=== PATIENT | female | born 1955 | race Caucasian/White ===

== ENCOUNTER 2020-05-24 10:12 | Emergency (ER) | payer MEDICARE, SELFPAY ==
[2020-05-24 10:24] VITALS: BP 169/95; PULSE 93; RESP 16; TEMP 36.5; O2SAT 97; BMI 33.3
[2020-05-24 10:31] VITALS: PULSE 99; O2SAT 97
--- NOTE | 2020-05-24 10:40 | XR_ITS ---
WS: [id number] Right arm and humerus, 2 views, 05/24/2020 Clinical Data: fall pain Comparison: None. Findings: There is a comminuted impacted fracture of the neck of the right humerus and the right humeral head. The shaft of the humerus is normal. The soft tissues are unremarkable. XR/[place] [id number] Impression: Comminuted impacted fracture of the neck of the right humerus and right humeral head.
--- NOTE | 2020-05-24 10:40 | XR_ITS ---
WS: [id number] Right shoulder, 3 views, 05/24/2020 Clinical Data: fall pain Comparison: None. Findings: There is a comminuted fracture of the junction of the humeral head and humeral neck. The humeral head remains adjacent to the glenoid fossa. The AC joint is normal. The adjacent right clavicle, right scapula and right ribs are unremarkable. XR/XR shoulder RT min 2V* [id number] Impression: Comminuted impacted fracture of the neck and head of the right humerus.
--- NOTE | 2020-05-24 11:12 | W.ED.EXTPRO ---
HPI - Extremity Problem General: Chief complaint: Extremity Injury, Upper Stated complaint: R SHOULDER INJURY/PAIN Time Seen by Provider: 05/24/20 10:23 History of Present Illness: HPI Narrative: 65-year-old female who presents with complaint of right shoulder pain after a fall on an outstretched arm yesterday. Is unable to move or use her right arm since the injury. Not strike her head did not lose consciousness. Patient primarily speaks Luxembourger she has a family member in attendance with he was able to translate. MD Complaint: extremity pain and extremity swelling Onset (ago): day(s) Pain Consistency: constant Location: right Quality: sharp Radiation: distal Relieving factors: immobilization Exacerbating factors: range of motion and palpation Associated symptoms: Deny arthralgias, chest pain, fever(s), myalgias, rash or short of breath Review of Systems Const: Denies: fever(s) ENMT: Denies: throat pain, ear or mastoid pain, nasal discharge or nasal congestion Card: Denies: chest pain Resp: Denies: dyspnea, productive cough or non-productive cough GI: Denies: abdominal pain, nausea, vomiting, hematemesis, coffee ground emesis, diarrhea, constipation, bloating, hematochezia or melena : Denies: flank pain, difficulty voiding, dysuria, urinary frequency or urinary urgency Skin/Breast: Denies: rash Physical Exam Const: COMMON NORMALS: no acute distress GENERAL APPEARANCE: cooperative and comfortable ORIENTATION/CONSCIOUSNESS: Yes awake, Yes oriented to person, Yes oriented to place and Yes oriented to time HENMT: COMMON NORMALS: normocephalic, atraumatic and hearing grossly normal bilaterally HEAD & SCALP: normocephalic and atraumatic Neck/C-Spine: COMMON NORMALS: full ROM, no lymphadenopathy, supple and no JVD Resp: COMMON NORMALS: normal respiratory effort, No retractions, No use of accessory muscles and clear to auscultation bilaterally AUSCULTATION: clear to auscultation bilaterally Cardio: COMMON NORMALS: no JVD, regular rate, regular rhythm and No murmurs present (Cardio) RATE: regular rate RHYTHM: regular rhythm GI: COMMON NORMALS: Soft to palpation and No hepatosplenomegaly present AUSCULTATION: Yes normoactive bowel sounds PALPATION: Yes Soft to palpation, No Tenderness to palpation present (GI), No Guarding due to palpation present (GI) and Yes No hepatosplenomegaly present Extremity: NARRATIVE EXTREMITY EXAM: Obvious deformity of the proximal humerus with significant swelling and pain with palpation consistent with proximal humerus fracture Neuro: SENSORIUM/ORIENTATION: Yes oriented to person, Yes oriented to place and Yes oriented to time Skin: COMMON NORMALS: no rashes or lesions noted GENERAL SKIN EXAM: no rashes or lesions noted Course Vital Signs: Vital signs: Vital Signs Temperature 97.7 F 05/24/20 10:24 Pulse Rate 85 05/24/20 11:23 Respiratory Rate 18 05/24/20 11:23 Blood Pressure 133/84 05/24/20 11:23 Pulse Oximetry 93 05/24/20 11:23 MDM - Extremity (Nontraumatic) MDM Narrative: Medical decision making narrative: Reviewed the findings with the patient and her family member who is translating for us we will put her in an arm sling short-term follow-up with orthopedics for definitive care. Discharge Plan Discharge Patient Disposition: Home Clinical Impression: Fracture of humerus Condition: Stable Prescriptions: New hydrocodone-acetaminophen 5-325 mg tablet 1 tab PO Q6H PRN (Reason: pain) Qty: 20 RF: 0 Discharge Orders: Discharge ED (Routine); Ordered 05/24/20 Ordered By: Vern Tee Referrals: Sarah Younger MD [Primary Care Provider] - Discharge Diet: Usual diet Discharge Activity: Increase activity as tolerated Patient Instructions: Opioid Safety Activity Restrictions/Additional Instructions: Case management will call with a referral to orthopedics. Continue to use a sling until released by orthopedics. Coding Level of Care Code ED Director Of Global Sales for Mazin Baldwin
[2020-05-24 11:23] VITALS: BP 133/84; PULSE 85; RESP 18; O2SAT 93
--- NOTE | 2020-05-24 12:45 | DCPLANNER ---
radio station manager had message to schedule a follow up appointment for patient with ortho. radio station manager called the ortho clinic, spoke with Gabby, gave clinic patients information. radio station manager was told that patients information would be printed and reviewed. Clinic will call patient with appointment information.
--- NOTE | 2020-05-31 14:16 | DCPLANNER ---
computer project manager called the ortho clinic to confirm if a follow up appointment had been scheduled for patient. computer project manager spoke with Gabby, was told that clinic is unable to speak with patient at this time. computer project manager unable to speak with patient.
== END 2020-05-24 11:23 | disposition home or self-care (01) ==
PROVIDERS: Emergency Provider Family Medicine; PCP Family Medicine
DX: S42.214A Unspecified nondisplaced fracture of surgical neck of right humerus, initial encounter for closed fracture (principal); W19.XXXA Unspecified fall, initial encounter
CPT/HCPCS: 73030; 73060; 99282

== ENCOUNTER 2020-06-16 13:03 | Outpatient (CLI) | payer MEDICARE, SELFPAY ==
--- NOTE | 2020-06-16 13:20 | XR_ITS ---
WS: [id number] Right shoulder, 3 views, 06/16/2020 Clinical Data: PAIN IN R SHOULDER Comparison: Right shoulder, 05/24/2020 Findings: The comminuted impacted fracture of the junction of the right humeral neck and head remains in good p osition. The AC joints unremarkable. XR/XR shoulder RT min 2V* [id number] Impression: No change in fracture of the junction of the right humeral neck and head.
== END 2020-06-16 13:04 | disposition home or self-care (01) ==
PROVIDERS: PCP Family Medicine; Visit Provider Nurse Practitioner Family
DX: S42.211A Unspecified displaced fracture of surgical neck of right humerus, initial encounter for closed fracture (principal); X58.XXXA Exposure to other specified factors, initial encounter
CPT/HCPCS: 73030

== ENCOUNTER → 2022-11-11 09:22 | Outpatient (BNVA) | payer MEDICARE, SELFPAY | PROVIDERS: PCP Family Medicine; Visit Provider Podiatrist Foot & Ankle Surgery | DX: Q82.8 Other specified congenital malformations of skin; L60.8 Other nail disorders | CPT/HCPCS: 17110; 73630; 99203 ==

== ENCOUNTER 2023-05-20 08:10 | Emergency (ER) | payer MEDICARE, MEDICAID, SELFPAY ==
[2023-05-20 08:32] VITALS: BP 189/91; PULSE 81; RESP 18; TEMP 36.8; O2SAT 95; BMI 33.3
--- NOTE | 2023-05-20 08:34 | XRR_ITS ---
PROCEDURE INFORMATION: Exam: XR Chest Exam date and time: 05/20/2023 8:42 AM Age: 68 years old Clinical indication: Pain; Cough and dyspnea; Angina pectoris; Additional info: Dyspnea/cough TECHNIQUE: Imaging protocol: Radiologic exam of the chest. Views: 1 view. COMPARISON: CR XR shoulder RT min 2V* [id number] 06/16/2020 1:28 PM FINDINGS: Lungs: The lung parenchyma is clear. Pleural spaces: No pneumothorax. No large pleural effusion. Heart/Mediastinum: Enlarged cardiac silhouette. Bones/joints: Degenerative changes in the shoulders. XR/XR chest 1V portable [id number] IMPRESSION: Enlarged cardiac silhouette.
--- NOTE | 2023-05-20 08:35 | ECG_ITS ---
[facility] Test Date: 2023-05-20 Pat Name: Stephania Lozano Department: Room: Gender: Female Pin Sticker: : [id number] Requested By: Vern Cuevas Order Number: [id number] Kings MD: Houston Kemp M.D. Measurements Intervals [place] Rate: 90 P: 53 TN: 201 QRS: 70 QRSD: 104 T: 44 QT: 337 QTc: 412 Interpretive Statements SINUS RHYTHM No previous ECG available for comparison Electronically Signed On 05-20-2023 18:23:48 TECHNICAL SPEC by Houston Kemp M.D. [email or web address] [email or web address] [email or web address]/[id number] f
--- NOTE | 2023-05-20 08:43 | ED_ITS ---
HPI - SOB/Dyspnea 2 General: Chief Complaint: Shortness of Breath/Dyspnea Stated Complaint: chest pain, sob Time Seen by Provider: 05/20/23 08:20 Source: patient Mode of arrival: ambulatory History of Present Illness: HPI Narrative: 68-year-old female presents emergency ro om planing shortness of breath some mild chest discomfort. She has had a mass and swollen area in her neck. Previously treated with antibiotics at an outpatient clinic it seems to be getting larger and more difficult for her to breathe she describes what sounds like almost a stridor certainly at the bedside she audible adventitious sounds. She is not a smoker has not been in the past she denies any hemoptysis. She has increasing cough denies fever sweats or chills. Patient does not speak Japanese her sons are at the bedside and assist in translation. MD elicited complaint: shortness of breath Timing: constant Exacerbating factors: nothing Relieving factors: nothing Associated symptoms: Deny abdominal pain, chest congestion, chest pain, cough, diaphoresis, dizziness, extremity pain, fever(s), hemoptysis, lightheadedness, myalgias, nausea, orthopnea, palpitations, paresthesias, polydipsia, polyuria, rash, sense of impending doom, syncope or vomiting Treatment prior to arrival: none Review of Systems 2 Const: Denies: fever(s), chills or diaphoresis Card: Denies: chest pain, palpitations, lightheadedness, syncope or orthopnea Resp: Denies: dyspnea, hemoptysis or chest congestion GI: Denies: abdominal pain, nausea or vomiting : Denies: dysuria, urinary frequency or urinary urgency Musc: Denies: neck pain, back pain or extremity pain Skin/Breast: Denies: rash Neuro: Denies: dizziness Endo: Denies: polyuria or polydipsia Physical Exam 2 Const: GENERAL APPEARANCE: cooperative ORIENTATION/CONSCIOUSNESS: Yes awake HENMT: COMMON NORMALS: normocephalic, atraumatic and hearing grossly normal bilaterally HEAD & SCALP: normocephalic and atraumatic Neck/C-Spine: OTHER: Swollen distorted mass at the lower portion of the trachea it extends supraclavicularly bilaterally is firm nonfluctuant. Mild stridor with auscultation at the neck Resp: COMMON NORMALS: normal respiratory effort, No retractions and No use of accessory muscles AUSCULTATION: wheezes Cardio: COMMON NORMALS: regular rate, regular rhythm and No murmurs present (Cardio) RATE: regular rate RHYTHM: regular rhythm GI: COMMON NORMALS: Soft to palpation and No hepatosplenomegaly present A USCULTATION: Yes normoactive bowel sounds PALPATION: Yes Soft to palpation, No Tenderness to palpation present (GI), No Guarding due to palpation present (GI) and Yes No hepatosplenomegaly present Extremity: COMMON NORMALS: normal to inspection, capillary refill normal, no clubbing, cyanosis or edema, no calf tenderness and no pedal edema Skin: COMMON NORMALS: no rashes or lesions noted GENERAL SKIN EXAM: no rashes or lesions noted Course 2 Vital Signs: Vital signs: Vital Signs Temperature 98.2 F 05/20/23 08:32 Pulse Rate 82 05/20/23 14:16 Respiratory Rate 20 H 05/20/23 14:16 Blood Pressure 116/74 05/20/23 14:16 Pulse Oximetry 97 05/20/23 14:16 Oxygen Delivery Me thod Room Air 05/20/23 10:30 MDM - SOB/Dyspnea Medical Decision Making Labs and imaging reviewed. Patient has a very large mass emanating from the upper portion of the chest through the thoracic inlet involving vascular structures. Her airway is not compromised this time discussed with radiology. Given the proximity and the distortion of the trachea were not intubating the patient. I am concerned that if we do we may precipitate bleeding at this point she has no respiratory distress is managing her breathing without any difficulty. Reviewed with receiving physician at [facility] they concur. Imaging has been forwarded to their facility the ENT and vascular surgery have reviewed. Will transfer ER to ER. Medical Records I reviewed the patient's medical records. Lab Data I reviewed the patient's lab results. 05/20/23 08:55 05/20/23 08:55 Labs/Radiology: Radiology Impressions Chest X-Ray 05/20/23 08:34 IMPRESSION: Enlarged cardiac silhouette. Laboratory Results WBC 9.51 10^3/uL (3.29-11.43) 05/20/23 08:55 RBC 3.60 10^6/uL (3.85-5.65) L 05/20/23 08:55 Hgb 11.30 g/dL (11.27-16.99) 05/20/23 08:55 Hct 35.5 % (36-47) L 05/20/23 08:55 MCV 98.6 fl (85-98) H 05/20/23 08:55 MCH 31.4 pg (27-33) 05/20/23 08:55 MCHC 31.8 g/dL (30-55) 05/20/23 08:55 RDW 12.9 % (12.1-15.1) 05/20/23 08:55 Plt Count 280 10^3/cmm (157-399) 05/20/23 08:55 MPV 12.0 fL (7.4-10.4) H 05/20/23 08:55 Neut % (Auto) 76.3 % 05/20/23 08:55 Lymph % (Auto) 11.5 % 05/20/23 08:55 Gregory % (Auto) 6.1 % 05/20/23 08:55 Eos % (Auto) 5.2 % 05/20/23 08:55 Baso % (Auto) 0.6 % 05/20/23 08:55 Neut # (Auto) 7.26 10^3/uL (1.8-7.7) 05/20/23 08:55 Lymph # (Auto) 1.1 10^3/uL (0.8-4.8) 05/20/23 08:55 Gregory # (Auto) 0.6 10^3/uL (0.2-0.9) 05/20/23 08:55 Eos # (Auto) 0.5 10^3/uL (0.0-0.8) 05/20/23 08:55 Baso # (Auto) 0.1 10^3/uL (0.0-0.1) 05/20/23 08:55 Nucleated RBC % (auto) 0 % 05/20/23 08:55 Nucleated RBCs # 0.0 /100WBC 05/20/23 08:55 Sodium 138 mmol/L (136-145) 05/20/23 08:55 Potassium 3.9 mmol/L (3.5-5.1) 05/20/23 08:55 Chloride 98 mmol/L (98-107) 05/20/23 08:55 Carbon Dioxide 28 mmol/L (22-29) 05/20/23 08:55 Anion Gap 15.9 (5-19) 05/20/23 08:55 BUN 6 mg/dL (8-23) L 05/20/23 08:55 Creatinine 0.4 mg/dL (0.5-0.9) L 05/20/23 08:55 GFR Calculation 157.8 mL/min (90-130) H 05/20/23 08:55 Glucose 149 mg/dL (65-115) H 05/20/23 08:55 Calculated Osmolality 286 mOsm/kg (285-295) 05/20/23 08:55 Calcium 9.0 mg/dL (8.5-10.5) 05/20/23 08:55 Total Bilirubin 0.4 mg/dL (0.15-1.2) 05/20/23 08:55 AST 10 U/L (0-32) 05/20/23 08:55 ALT 14 U/L (0-33) 05/20/23 08:55 Alkaline Phosphatase 69 U/L (35-105) 05/20/23 08:55 Troponin T Baseline 12 ng/L (0-10) H 05/20/23 08:55 Troponin T 120 Minute 15.05 ng/L (0-10) H 05/20/23 11:11 Delta Troponin T 3.05 ABS# (0-10) 05/20/23 11:11 Total Protein 7.0 g/dL (6.6-8.7) 05/20/23 08:55 Albumin 4.1 g/dL (3.5-5.2) 05/20/23 08:55 Globulin 2.9 g/dL (1.3-4.6) 05/20/23 08:55 All radiology interpretation(s) finalized by discharge Discharge Plan Discharge Patient Disposition: Xfer Short-Term Hosp Clinical Impression: Mass in neck Condition: Stable Referrals: Sarah Younger MD [Primary Care Provider] - Coding Level of Care Code ED Bridge Crane Operator for Mazin Baldwin
[2023-05-20] MEDS: aspirin 81 mg Chew Tablet 324 MG PO (08:47)
--- NOTE | 2023-05-20 08:49 | CT_ITS ---
WS: [id number] CT NECK TECHNIQUE: Contrast-enhanced CT of the neck with coronal and sagittal reformatted images. CLINICAL INFORMATION: neck mass COMPARISON: None. DLP: 244.[address] scans at [facility] use at least one of these dose optimization techniques: automated e xposure control; mA and/or kV adjustment per patient size (includes targeted exams where dose is matc hed to clinical indication); or iterative reconstruction. FINDINGS: Heterogeneously enhancing central low-attenuation necrotic appearing mass at the thoracic inlet invol ving the tracheoesophageal groove and visceral space eccentric to the RIGHT. Associated RIGHT to LEFT mass effect on the trachea and traversing esophagus. Displacement of the lower pole of the RIGHT thy roid. Heterogeneous enhancing mass displaces the RIGHT innominate artery and common carotid artery la terally. Associated intensely enhancing masslike lymphadenopathy in the RIGHT lower neck. Associated compression or invasion of the RIGHT jugular vein. Largest lymph node measures approximately 3.5 x 2. 6 cm. Mass extends into the anterior superior mediastinum. Common carotid arteries remain patent. Mas s extends posteriorly into the prevertebral space and abuts the C6-T2 vertebral bodies with loss of t he normal fat plane. Findings suspicious for carcinoma. Tiny lytic lesions in the cervical spine some of which may be due to osteopenia but metastatic diseas e not entirely excluded. Spinal canal appears patent. Lung apices are well aerated. Parotid glands ar e normal submandibular glands are normal.. Normal posterior nasopharynx. Moderate to advanced small v essel changes partially visualized with moderate parenchymal volume loss. IMPRESSION: 1. 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 Associated RIGHT to LEFT mass effect with compression of the trachea and esophagus. 2. Necrotic appearing mass measures approximately 5.8 x 4.7 x 5.5 cm. Associated bulky enhancing met astatic RIGHT cervical lymphadenopathy in the RIGHT neck and infraclavicular regions. 3. Associated displacement of the RIGHT common carotid artery with mass effect on the innominate art jb which remain patent. 4. Bulky lymphadenopathy or tumor compresses the RIGHT jugular vein. Tumor thrombus not excluded. Di stal jugular vein remains patent. 5. Loss of the prevertebral fat plane with the necrotic tumor abutting the lower cervical and upper thoracic vertebral bodies. Spinal canal appears patent. 6. Tiny lytic lesions in the cervical and thoracic spine nonspecific but metastatic disease not excl uded. 7. Tumor involves the tracheoesophageal groove and retropharyngeal space. Extension into the prevert ebral space described above. 8. Some differential considerations include anaplastic or differentiated thyroid carcinoma, thyroid lymphoma, primary head neck squamous cell carcinoma, or cervical esophageal carcinoma. Notified Vern Tee DO at 05/20/2023 10:31 AM.
[2023-05-20 09:06] LABS: Basophils # 0.1 10^3/uL (0.0-0.1); Basophils % 0.6 %; Eosinophils # 0.5 10^3/uL (0.0-0.8); Eosinophils % 5.2 %; Hematocrit 35.5 % (36-47); Lymphocytes # 1.1 10^3/uL (0.8-4.8); Lymphocytes % 11.5 %; Mean Corpuscular HGB Conc 31.8 g/dL (30-55); Mean Corpuscular Hemoglobin 31.4 pg (27-33); Mean Corpuscular Volume 98.6 fl (85-98); Monocytes # 0.6 10^3/uL (0.2-0.9); Monocytes % 6.1 %; Neutrophils # 7.26 10^3/uL (1.8-7.7); Neutrophils % 76.3 %; Nucleated Red Blood Cells % 0 %; Platelet Count 280 10^3/cmm (157-399); Red Cell Distribution Width 12.9 % (12.1-15.1); White Blood Count 9.51 10^3/uL (3.29-11.43)
[2023-05-20 09:23] LABS: Alanine Aminotransferase 14 U/L (0-33); Albumin Level 4.1 g/dL (3.5-5.2); Alkaline Phosphatase 69 U/L (35-105); Anion Gap 15.9 (5-19); Aspartate Amino Transferase 10 U/L (0-32); Blood Urea Nitrogen 6 mg/dL (8-23); Carbon Dioxide 28 mmol/L (22-29); Chloride 98 mmol/L (98-107); Creatinine Clr Calc Pharmacy 72.8123; Globulin 2.9 g/dL (1.3-4.6); Glomerular Filtration Rate 157.8 mL/min (90-130); Glucose 149 mg/dL (65-115); Osmolality Calculated 286 mOsm/kg (285-295); Potassium 3.9 mmol/L (3.5-5.1); Sodium 138 mmol/L (136-145); Total Bilirubin 0.4 mg/dL (0.15-1.2)
[2023-05-20 09:24] LABS: Troponin(5th) Baseline 12 ng/L (0-10)
[2023-05-20] MEDS: iohexol 350 mg/mL 500 mL Btl (per mL) IV (09:36)
[2023-05-20 09:37] VITALS: BP 115/97; PULSE 93; RESP 18; O2SAT 97
--- NOTE | 2023-05-20 10:03 | ECG_ITS ---
[facility] Test Date: 2023-05-20 Pat Name: Stephania Lozano Department: Room: Gender: Female Electronics Technician: : 1955 Requested By: Vern Cuevas Order Number: [id number] Kings MD: Houston Kemp M.D. Measurements Intervals [place] Rate: 72 P: 46 RI: 198 QRS: 70 QRSD: 101 T: 57 QT: 355 QTc: 390 Interpretive Statements SINUS RHYTHM INCOMPLETE RIGHT BUNDLE BRANCH BLOCK [90+ ms QRS DURATION, TERMINAL R IN V1/V2, 40+ ms S IN I/aVL/V4/V5/V6] Compared to ECG 05/20/2023 08:17:37 Incomplete right bundle-branch block now present Electronically Signed On 05-20-2023 18:32:58 BEADER TENDER by Houston Kemp M.D. [id number]
[2023-05-20 10:30] VITALS: PULSE 79; RESP 16; O2SAT 95
[2023-05-20 11:59] LABS: Troponin 5 2HR 15.05 ng/L (0-10); Troponin 5 2HR Delta 3.05 ABS# (0-10)
[2023-05-20 13:31] VITALS: BP 129/74; PULSE 85; RESP 21; O2SAT 95
[2023-05-20] MEDS: D5-NS 0.45% + KCL 20 mEq 20 MEQ/1,000 ML BAG 125 MEQ IV (13:38)
[2023-05-20 14:16] VITALS: BP 116/74; PULSE 82; RESP 20; O2SAT 97
== END 2023-05-20 14:19 | disposition short-term general hospital (02) ==
PROVIDERS: Emergency Provider Family Medicine; PCP Family Medicine
DX: R22.1 Localized swelling, mass and lump, neck (principal)
CPT/HCPCS: 70491; 71045; 80053; 84484; 85025; 93005; 96374; 99285; Q9967